=== PATIENT | female | born 1990 | race Two or more races ===

== ENCOUNTER 2016-11-03 15:53 | Emergency (ER) | payer OTHER ==
[~2016-11-03] VITALS: Ht 157.5 cm; Wt 97.5 kg
[2016-11-03 16:58] VITALS: BP 133/74
--- NOTE | 2016-11-03 17:10 | PHYS DOC ---
Past Medical History Past Medical History: No Pertinent History Past Surgical History: No Surgical History Additional Information: 2 cigarettes daily Alcohol Use: Rarely Drug Use: None Adult General Chief Complaint Chief Complaint: LOWER BACK PAIN OR INJURY HPI HPI Patient is a 25 year old female who presents with tailbone pain after fall yesterday. Patient states that she was playing kickball and was running towards the base when she slipped and fell, landing on her bottom. She denies hitting her head or loss of consciousness. She does not have any weakness, numbness, incontinence, or saddle anesthesia. She denies nausea, vomiting, abdominal pain , or urinary symptoms. LMP was 4 months ago, currently on the Depo shot. She does not have a PCP. Review of Systems Review of Systems Constitutional: Denies fever or chills. [] Eyes: Denies change in visual acuity, redness, or eye pain. [] HENT: Denies ear pain, nasal congestion or sore throat. [] Respiratory: Denies cough or shortness of breath. [] Cardiovascular: Denies chest pain, palpitations or edema. [] GI: Denies abdominal pain, nausea, vomiting, bloody stools or diarrhea. [] : Denies dysuria, hematuria or urinary frequency. [] Musculoskeletal: Denies joint pain. Reports tailbone pain. Integument: Denies rash or skin lesions. [] Neurologic: Denies headache, focal weakness or sensory changes. Denies incontinence or saddle anesthesia. Endocrine: Denies polyuria or polydipsia. [] Psych: Denies anxiety or depression. [] All systems reviewed and negative unless otherwise stated in the HPI. Allergies Allergies Allergies Coded Allergies Type Severity Reaction Last Updated Verified No Known Drug Allergies 11/03/16 No Physical Exam Physical Exam Constitutional: Well developed, well nourished, no acute distress, non-toxic appearance. [] HENT: Normocephalic, atraumatic, oropharynx moist. [] Eyes: PERRLA, EOMI, conjunctiva normal, no discharge. [] Neck: Normal range of motion, no tenderness, supple, no stridor. [] Cardiovascular: Heart rate regular rhythm, no murmur. [] Lungs & Thorax: Bilateral breath sounds clear to auscultation without wheezes, rales, or rhonchi. [] Abdomen: Bowel sounds normal, soft, no tenderness, no masses, no pulsatile masses. [] Skin: Warm, dry, no erythema, no rash. [] Back: Sacral midline tenderness, no CVA tenderness. [] Extremities: No tenderness, ROM intact, no edema. Distal pulses equal bilaterally. [] Neurologic: Alert and oriented X 3, normal motor function, normal sensory function, no focal deficits noted. [] Psychologic: Affect normal, judgement normal, mood normal. [] Current Patient Data Vital Signs Vital Signs Date Time Temp Pulse Resp B/P Pulse Ox O2 Delivery O2 Flow Rate FiO2 11/03/16 16:58 97.7 62 16 100 Room Air 97.7 Lab Values Laboratory Tests Test 11/03/16 16:20 POC Urine HCG, Qualitative Hcg negative (Negative) EKG EKG [] Radiology/Procedures Radiology/Procedures 3-view xray of the sacrum reviewed and interpreted by myself with Dr. Jasso. There are no acute fractures or dislocations. Course & Med Decision Making Course & Med Decision Making Pertinent Labs and Imaging studies reviewed. (See chart for details) [] Dragon Disclaimer Dragon Disclaimer This electronic medical record was generated, in whole or in part, using a voice recognition dictation system. Departure Departure Impression: Primary Impression: Coccygeal contusion Disposition: HOME, SELF-CARE Condition: STABLE Referrals: NO PCP (PCP) Patient Instructions: Tailbone Injury, [id number] Additional Instructions: There were no broken bones seen on your x-ray. Please take the prescribed medications as directed. Do not drive or operate heavy machinery while taking these medications. You may purchase a donut pillow for sitting. Recommend taking a stool softener with the pain medication to keep your stools soft. Please follow-up with a primary care doctor if your pain continues. Return to the emergency department if you have any new or concerning symptoms. Scripts Tramadol Hcl (Ultram)50 Mg [id number] Mg PO Q6H PRN PAIN #20 TAB Prov:SHAY AUSTIN 11/03/16 Methocarbamol (Robaxin)500 Mg [id number] Mg PO QID #20 TAB Prov:SHAY AUSTIN 11/03/16 Problem Qualifiers Primary Impression: Coccygeal contusion Encounter type: initial encounter Qualified Code: S30.0XXA - Contusion of lower back and pelvis, initial encounter SHAY AUSTIN Nov 03, 2016 17:10
[2016-11-03] MEDS ORDERED: TRAM-29 PO (18:43)
[2016-11-03] MEDS ORDERED: METH-37 PO (18:43)
--- NOTE | 2016-11-04 09:47 | RAD ---
Sacrococcygeal spine, 11/03/2016: History: Fall, pain No fracture is identified. The presacral soft tissues are unremarkable. IMPRESSION: No significant abnormality is detected.
== END 2016-11-03 18:49 | disposition home or self-care (01) ==
LOC: ER 15:53
DX: S30.0XXA Contusion of lower back and pelvis, initial encounter (principal); F17.210 Nicotine dependence, cigarettes, uncomplicated; W10.8XXA Fall (on) (from) other stairs and steps, initial encounter; Y93.89 Activity, other specified; Y92.89 Other specified places as the place of occurrence of the external cause; Y99.8 Other external cause status
CPT/HCPCS: 72220; 81025; 99284